=== PATIENT | female | born 1955 | race Caucasian/White ===

== ENCOUNTER 2017-03-11 18:08 | Emergency (ER) | payer MEDICARE ==
--- NOTE | ~2017-03-11 | ER ---
PATIENT'S NAME: LUPE BYERS [facility] AGE: 61 Y [address] ROOM: [place] [id number] LOCATION: [facility] ADMIT DATE: 03/11/2017 ER/Outpatient Report DISCHARGE DATE: FAMILY PHYSICIAN: Alecia Davis APRN ATTENDING PHYSICIAN: Ajay Yip Admission date and time documented on the medical record. I saw the patient at 1825 hours. CHIEF COMPLAINT: Diarrhea. HISTORY OF PRESENT ILLNESS: The patient is a 61-year-old female, who has had 8 to 10 diarrhea stools daily for the past 10 days. Feels bloated. She has generalized abdominal discomfort. No nausea, vomiting. No fever, chills, sweats. No coughs, colds. No chest pain, shortness of breath. No lightheadedness, dizziness, syncope, or near syncope. No headache, eyes, ears, nose, throat, neck, or spine pain. No fall or trauma. No joint or muscle swelling, redness, or pain. No skin eruptions or rash. No history of neuro changes, psych issues, endocrine problems. HOME MEDICATIONS: See attached medication list. ALLERGIES: NONE. SOCIAL HISTORY: Nonsmoker, nondrinker. SIGNIFICANT PAST MEDICAL HISTORY: Depression, anxiety, bipolar disorder, hypertension, headaches, diverticulosis, diverticulitis, intraabdominal adhesions, headaches. OPERATIONS: Tonsillectomy, cholecystectomy, appendectomy, bilateral breast implants, right ankle surgery, tubal ligation, bone graft, colon resection. REVIEW OF SYSTEMS: All systems reviewed by me are negative with the exception of those discussed in the history of present illness. PHYSICAL EXAMINATION: VITAL SIGNS: Temperature 97.9 tympanic, pulse 71, respirations 16, blood PATIENT'S NAME: LUPE BYERS [facility] AGE: 61 Y [address] ROOM: [place], [place] [address] LOCATION: [facility] ADMIT DATE: 03/11/2017 ER/Outpatient Report DISCHARGE DATE: FAMILY PHYSICIAN: Alecia Davis APRN ATTENDING PHYSICIAN: Ajay Yip pressure 154/74, O2 saturation on room air is 94%. HEENT: HEAD: Normocephalic. Eyes: Clear. Ears, clear TMs bilaterally. Nose and Throat: Clear. Mucous membranes moist. NECK: No nuchal rigidity. No thyromegaly or cervical adenopathy. LUNGS: Clear. No rales, rhonchi, or wheezes. HEART: Regular. Pulses are palpable. ABDOMEN: Soft. Generalized tenderness. No true guarding or rigidity. No rebound tenderness. Bowel tones present. No organomegaly or abnormal mass palpable. No CVA tenderness. EXTREMITIES: Without peripheral edema, cyanosis, or deformity. NEUROVASCULAR: Intact. SKIN: Clear. No skin eruptions or rash. LABORATORY DATA AND X-RAYS: Three abdominal x-ray showed no perforation, obstruction, acute lung infiltrate. There are questionable air-fluid levels. We will review x-ray with radiologist. Laboratory, stool white cells not observed. Stool occult blood negative. C. diff negative. Giardia negative. Cryptosporidium negative. Culture pending. CMS is normal except for low potassium 3.5. Amylase and lipase were normal. CRP was 0.7. White count was 5200, 59 segs, 28 lymphs, 10 monos, 2 eos, 1 baso. Hemoglobin was 10.2 with hematocrit 29.8, platelet count was 262,000. Procalcitonin was less than 0.05. Lactate was 0.4. EMERGENCY DEPARTMENT COURSE: I did give the patient IV normal saline fluids. I went ahead with a CT scan of the abdomen and pelvis with IV contrast. CT scan showed diffuse colitis, increased colonic stool. No bowel obstruction or ileus. CT scan was read by Radiology, see dictated transcribed report. IMPRESSION: 1. Colitis with abdominal pain, diarrhea. 2. Hypertension. 3. Headache. 4. Bipolar disorder with depression, anxiety. PLAN: The patient was given Cipro 400 mg IV in the emergency room. Discharged home. Observation. Activity as tolerated. Continue present home medications and care. Cipro 500 mg b.i.d. for 1 week. Lomotil 2 four times a day diarrhea. Clear liquid diet for 24 hours and BRAT diet for 3 days and general diet. Follow up with personal physician in 4 or 5 days or sooner if needed. Discussion ensued with the patient concerning my findings and recommendations, she understands. PATIENT'S NAME: LUPE BYERS [facility] AGE: 61 Y [address] ROOM: [place] [address] LOCATION: [facility] ADMIT DATE: 03/11/2017 ER/Outpatient Report DISCHARGE DATE: FAMILY PHYSICIAN: Alecia Davis APRN ATTENDING PHYSICIAN: Ajay Yip MD ALVARO LARKIN/modl /[id number] d: 03/11/17 2309 t: 03/12/17 1809, OUTPATIENT REPORT
[2017-03-11 18:52] LABS: BASOPHIL % 0.6 %; EOSINOPHIL # 0.1 K/uL (0.0-0.5); EOSINOPHIL % 1.7 %; HEMATOCRIT 29.8 % (33.0-46.0); HEMOGLOBIN 10.2 g/dL (10.0-15.0); IMMATURE GRANULOCYTE % 0.2 %; LYMPHOCYTE # 1.5 K/uL (0.8-4.0); LYMPHOCYTE % 28.2 %; MCH 30.1 pg (27.0-34.0); MCHC 34.2 gm/dL (32.0-36.5); MCV 87.9 fl (83.0-98.0); MONOCYTE # 0.5 K/uL (0.0-1.0); MONOCYTE % 9.9 %; MPV 9.3 fl (9.4-12.4); NEUTROPHIL # (ANC) 3.1 K/uL (1.8-7.8); NEUTROPHIL % 59.4 %; NRBC % 0 /100WBC (0-0.00); PLATELET COUNT 262 K/uL (150-450); RBC 3.39 M/uL (3.50-5.50); WBC 5.2 K/uL (4.0-11.0)
[2017-03-11 19:13] LABS: ALBUMIN 3.5 gm/dL (3.5-5.0); ANION GAP 10.5 (10.0-19.0); CALCIUM 8.7 mg/dL (8.5-10.5); CREATININE 0.8 mg/dL (0.5-1.1); POTASSIUM 3.5 mMol/L (3.7-5.1); TOTAL BILIRUBIN 0.3 mg/dL (0.0-1.5); TOTAL PROTEIN 7.3 g/dL (6.0-8.4)
[2017-03-11 22:14] LABS: ADENOVIRUS F 40/41 Not Detected (Not Detect); ASTROVIRUS Not Detected (Not Detect); C DIFFICILE TOXIN A/B Not Detected (Not Detect); CAMPYLOBACTER SPECIES Not Detected (Not Detect); CRYPTOSPORIDIUM Not Detected (Not Detect); CYCLOSPORA CAYETANENSIS Not Detected (Not Detect); E. COLI (EPEC) Not Detected (Not Detect); E. COLI (ETEC) Not Detected (Not Detect); E. COLI (STEC) Not Detected (Not Detect); ENTAMOEBA HISTOLYTICA Not Detected (Not Detect); GIARDIA LAMBLIA Not Detected (Not Detect); NOROVIRUS GI/ GII Not Detected (Not Detect); PLESIOMONAS SPECIES Not Detected (Not Detect); ROTAVIRUS A Not Detected (Not Detect); SALMONELLA SPECIES Not Detected (Not Detect); SAPOVIRUS Not Detected (Not Detect); SHIGELLA AND EIEC Not Detected (Not Detect); VIBRIO CHOLERAE Not Detected (Not Detect); VIBRIO SPECIES Not Detected (Not Detect); YERSINIA ENTEROCOLITICA Not Detected (Not Detect)
== END 2017-03-11 22:38 | disposition disaster alternative care site (69) ==
LOC: GMED 18:08
PROVIDERS: Emergency Medicine
DX: K52.9 Noninfective gastroenteritis and colitis, unspecified (principal); I10 Essential (primary) hypertension; F32.9 Major depressive disorder, single episode, unspecified; F41.9 Anxiety disorder, unspecified; Z90.89 Acquired absence of other organs; Z90.49 Acquired absence of other specified parts of digestive tract; Z98.890 Other specified postprocedural states; Z98.51 Tubal ligation status; Z79.899 Other long term (current) drug therapy
CPT/HCPCS: J0744; J0780; J1200; J1885; J7030; Q9967